=== PATIENT | female | born 1995 | race Caucasian/White ===

== ENCOUNTER 2017-07-17 05:33 | Emergency (ER) | payer BC ==
[2017-07-17 05:53] VITALS: PULSE 90; TEMP 97.9; BMI 27.9
--- NOTE | 2017-07-17 05:54 | PDOC ---
History of Present Illness - General Chief Complaint: Nausea/Vomiting Stated Complaint: ABD PAIN Time Seen by Provider: 07/17/17 05:48 History Source: Patient - History of Present Illness Initial Comments: 07/17/17 06:24 22-year-old female with no medical history presents to the emergency department complaining of lower abdominal pain 6 hours. Pain is described as 8/10 sharp nonradiating intermittent discomfort with nausea/vomiting but denies fever/ chills, neck pain, back pain, shortness of breath, chest pain, flank pains, urinary symptoms: Frequency/urgency/hesitancy, hematuria. There are no alleviating or exacerbating factors. LMP: Presently Past History - Past Medical History Allergies/Adverse Reactions: Allergies Allergy/AdvReac Type Severity Reaction Status Date / Time No Known Allergies Allergy Verified 01/10/16 08:02 GI Disorders: Yes (GB STONES) - Immunization History Immunization Up to Date: Yes - Psycho/Social/Smoking Cessation Hx Anxiety: No Suicidal Ideation: No Smoking History: Never smoked Have you smoked in the past 12 months: No Number of Cigarettes Smoked Daily: 0 Hx Alcohol Use: No Drug/Substance Use Hx: No Substance Use Type: None Hx Substance Use Treatment: No Review of Systems - Review of Systems Able to Perform ROS?: Yes Comments:: 07/17/17 06:25 CONSTITUTIONAL: Absent: fever, chills, diaphoresis, generalized weakness, malaise, loss of appetite HEENT: Absent: rhinorrhea, nasal congestion, throat pain, throat swelling, difficulty swallowing, mouth swelling, ear pain, eye pain, visual Changes CARDIOVASCULAR: Absent: chest pain, loss of consciousness, palpitations, irregular heart rate, peripheral edema RESPIRATORY: Absent: cough, shortness of breath, dyspnea with exertion, orthopnea, wheezing, stridor, hemoptysis GASTROINTESTINAL: +abd pain, N/V Absent:abdominal distension, diarrhea, constipation, melena, hematochezia GENITOURINARY: Absent: dysuria, frequency, urgency, hesitancy, hematuria, flank pain, genital pain MUSCULOSKELETAL: Absent: myalgia, arthralgia, joint swelling SKIN: Absent: rash, itching, pallor HEMATOLOGIC/IMMUNOLOGIC: Absent: easy bleeding, easy bruising, lymphadenopathy, frequent infections ENDOCRINE: Absent: unexplained weight gain, unexplained weight loss, heat intolerance, cold intolerance NEUROLOGIC: Absent: headache, focal weakness or paresthesias, dizziness, unsteady gait, seizure, mental status changes, bladder or bowel incontinence PSYCHIATRIC: Absent: anxiety, depression, suicidal or homicidal ideation, hallucinations. Is the patient limited Swedish proficient: No *Physical Exam - Vital Signs Last Vital Signs Temp Pulse Resp BP Pulse Ox 97.9 F 90 18 133/80 97 07/17/17 05:46 07/17/17 05:46 07/17/17 05:46 07/17/17 05:46 07/17/17 05:46 - Physical Exam Comments: 07/17/17 06:25 GENERAL: Well developed, well nourished. Awake and alert. No acute distress. HEENT: Normocephalic, atraumatic. PERRLA, EOMI. No conjunctival pallor. Sclera are non- icteric. Moist mucous membranes. Oropharynx is clear. NECK: Supple. Full ROM. No JVD. Carotid pulses 2+ and symmetric, without bruits. No thyromegaly. No lymphadenopathy. CARDIOVASCULAR: Regular rate and rhythm. No murmurs, rubs, or gallops. Distal pulses are 2+ and symmetric. PULMONARY: No evidence of respiratory distress. Lungs clear to auscultation bilaterally. No wheezing, rales or rhonchi. ABDOMINAL: +LLQ pain on deep palp Soft. Non-distended. No rebound or guarding. No organomegaly. Normoactive bowel sounds. MUSCULOSKELETAL Normal range of motion at all joints. No bony deformities or tenderness. No CVA tenderness. EXTREMITIES: No cyanosis. No clubbing. No edema. No calf tenderness. SKIN: Warm and dry. Normal capillary refill. No rashes. No jaundice. NEUROLOGICAL: Alert, awake, appropriate. Cranial nerves 2-12 intact. No deficits to light touch and temperature in face, upper extremities and lower extremities. No motor deficits in the in face, upper extremities and lower extremities. Normoreflexic in the upper and lower extremities. Normal speech. Toes are down- going bilaterally. Gait is normal without ataxia. PSYCHIATRIC: Cooperative. Good eye contact. Appropriate mood and affect. ED Treatment Course - LABORATORY CBC & Chemistry Diagram: 07/17/17 05:51 07/17/17 05:51 Progress Note - Progress Note Progress Note: 0701hrs: signed out to SOFI Zheng reassess/ check CT scan abd/pelvis *DC/Admit/Observation/Transfer - Discharge Dispostion Condition at time of disposition: Guarded
[2017-07-17] MEDS ORDERED: ONDANSETRON 4 MG/2 ML VIAL IVPUSH ONE ×2 (05:56→07:16)
[2017-07-17] MEDS ORDERED: SODIUM CHLORIDE 1,000 ML IV SCH (06:00)
[2017-07-17] MEDS ORDERED: ONDANSETRON 4 MG/2 ML VIAL ONE ×2 (06:05→07:20)
[2017-07-17 06:06] LABS: BASOPHIL 0.4 % (0-2.0); EOSINOPHIL 0.2 % (0-4.5); MCH 28.2 pg (25.7-33.7); MCHC 33.2 g/dl (32.0-36.0); MEAN PLT VOLUME 8.1 fl (7.5-11.1); NEUTROPHILS 83.7 % (42.8-82.8); PLATELET COUNT 268 K/MM3 (134-434); RDW 13.2 % (11.6-15.6); WHITE BLOOD COUNT 9.8 K/mm3 (4.0-10.0)
[2017-07-17] MEDS ORDERED: morphine CARPU-JECT 2 MG/1 ML DISP.SYRIN IVPUSH ONE (06:11)
[2017-07-17] MEDS ORDERED: morphine CARPU-JECT 2 MG/1 ML DISP.SYRIN ONE (06:18)
[2017-07-17 06:28] VITALS: BP 139/81
[2017-07-17 06:37] LABS: ALBUMIN 3.9 g/dl (3.4-5.0); ALK PHOS 50 U/L (45-117); ANION GAP 8 (8-16); BILIRUBIN,TOTAL 0.5 mg/dL (0.2-1.0); CALCIUM 9.1 mg/dL (8.5-10.1); CO2 24 mmol/L (21-32); CREATININE 0.7 mg/dL (0.55-1.02); GLUCOSE,RANDOM 102 mg/dL (74-106); SGOT/AST 11 U/L (15-37); SGPT/ALT 19 U/L (12-78); TOT PROT 6.7 g/dl (6.4-8.2)
[2017-07-17 06:39] LABS: URINE APPEARANCE SLCLOUDY; URINE BILIRUBIN NEGATIVE (NEGATIVE); URINE BLOOD 3+ (NEGATIVE); URINE COLOR YELLOW; URINE GLUCOSE (UA) NEGATIVE (NEGATIVE); URINE KETONE 1+ (NEGATIVE); URINE LEUK ESTERASE NEGATIVE (NEGATIVE); URINE NITRITE NEGATIVE (NEGATIVE); URINE PROTEIN NEGATIVE (NEGATIVE); URINE UROBILINOGEN NEGATIVE mg/dL (0.2-1.0)
[2017-07-17 06:47] LABS: URINE MUCUS RARE; URINE RBC 10 /hpf (0-3); URINE WBC 4 /hpf (3-5)
[2017-07-17] MEDS ORDERED: SODIUM CHLORIDE 1,000 ML IV STA (07:16)
--- NOTE | 2017-07-17 07:16 | PDOC ---
*Physical Exam - Vital Signs Last Vital Signs Temp Pulse Resp BP Pulse Ox 97.9 F 90 18 139/81 97 07/17/17 05:46 07/17/17 05:46 07/17/17 05:46 07/17/17 06:27 07/17/17 05:46 ED Treatment Course - LABORATORY CBC & Chemistry Diagram: 07/17/17 05:51 07/17/17 05:51 - ADDITIONAL ORDERS Additional order review: Laboratory Results 07/17/17 07/17/17 05:57 05:51 Sodium 141 Potassium 4.2 Chloride 109 H Carbon Dioxide 24 Anion Gap 8 BUN 19 H D Creatinine 0.7 Creat Clearance w eGFR > 60 Random Glucose 102 D Calcium 9.1 Total Bilirubin 0.5 D AST 11 L D ALT 19 D Alkaline Phosphatase 50 Total Protein 6.7 Albumin 3.9 Urine Color Yellow Urine Appearance Slcloudy Urine pH 5.0 Urine Protein Negative Urine Glucose (UA) Negative Urine Ketones 1+ H Urine Blood 3+ H Urine Nitrite Negative Urine Bilirubin Negative Urine Urobilinogen Negative Urine RBC 10 Urine WBC 4 Ur Epithelial Cells Few Urine Mucus Rare Urine HCG, Qual Negative 07/17/17 05:51 RBC 4.93 MCV 85.0 MCHC 33.2 RDW 13.2 D MPV 8.1 Neutrophils % 83.7 H D Lymphocytes % 13.3 D Monocytes % 2.4 L Eosinophils % 0.2 Basophils % 0.4 - Medications Given in the ED: ED Medications Discontinued Medications Generic Name Dose Route Start Last Admin Trade Name Tristonq PRN Reason Stop Dose Admin Morphine Sulfate 2 mg 07/17/17 06:11 07/17/17 06:28 Morphine Injection - IVPUSH 07/17/17 06:12 2 mg ONCE ONE Administration Ondansetron HCl 4 mg 07/17/17 05:56 07/17/17 06:27 Zofran Injection IVPUSH 07/17/17 05:57 4 mg ONCE ONE Administration Medical Decision Making - Medical Decision Making 07/17/17 07:06 Patient received in sign out from SOHAIL Fragoso for complaints of left lower quadrant pain . Patient awaiting CT 07/17/17 07:07 Laboratory Tests 07/17/17 07/17/17 07/17/17 05:51 05:51 05:57 WBC 9.8 Hgb 13.9 Hct 41.9 Plt Count 268 Neutrophils % 83.7 H D Carbon Dioxide 24 Anion Gap 8 Urine Ketones 1+ H Urine Urobilinogen Negative Urine RBC 10 Urine WBC 4 Urine HCG, Qual Negative 07/17/17 11:28 CT shows no evidence of acute appendicitis diverticulitis or abscess. CT does show a left ovarian cyst. will discharge home with recommendations to take Motrin apply heating pad and take Zofran as needed for nausea *DC/Admit/Observation/Transfer Diagnosis at time of Disposition: Cyst of ovary Qualifiers: Laterality: left Qualified Code(s): N83.202 - Unspecified ovarian cyst, left side - Discharge Dispostion Disposition: HOME Condition at time of disposition: Improved - Patient Instructions Printed Discharge Instructions: DI for Ovarian Cyst Additional Instructions: Please take Motrin as needed for discomfort and may take Zofran as needed for nausea. If pain continues please follow-up with [facility]. otherwise return to ED if symptoms worsen.
[2017-07-17] MEDS ORDERED: METOCLOPRAMIDE HCL INJECTION 10 MG/2 ML VIAL IVPB ONE (08:56)
[2017-07-17] MEDS ORDERED: METOCLOPRAMIDE HCL INJECTION 10 MG/2 ML VIAL ONE (09:00)
== END 2017-07-17 11:56 | disposition home or self-care (01) ==
LOC: JER 05:33
PROC: 3E033NZ Introduction of Analgesics, Hypnotics, Sedatives into Peripheral Vein, Percutaneous Approach (ICD-10-PCS; principal; 2017-07-17)
PROC: 3E033GC Introduction of Other Therapeutic Substance into Peripheral Vein, Percutaneous Approach (ICD-10-PCS; 2017-07-17)
DX: N83.202 Unspecified ovarian cyst, left side (principal)
CPT/HCPCS: 36415; 74177-TC; 80053; 81003; 81015; 83690; 84703; 85025; 99282-25

== ENCOUNTER 2017-08-16 05:14 | Day surgery (SDC) | payer BC ==
[2017-08-11 16:27] VITALS: BMI 27.9
[2017-08-16] MEDS ORDERED: PROPOFOL 20 ML ONE ×2 (07:58→08:28)
[2017-08-16] MEDS ORDERED: LIDOCAINE HCL/PF 2% SDV 5ML VIAL ONE (07:58)
[2017-08-16] MEDS ORDERED: MIDAZOLAM HCL 2 MG/2 ML SINGLE DOSE VIAL ONE (07:59)
[2017-08-16] MEDS ORDERED: SUCCINYLCHOLINE CHLORIDE 200 MG/10 ML VIAL ONE (07:59)
[2017-08-16] MEDS ORDERED: METRONIDAZOLE 500 MG PREMIXED 100 ML IVPB ONE (08:41)
[2017-08-16] MEDS ORDERED: KETOROLAC TROMETHAMINE 30 MG/1 ML VIAL ONE (08:47)
[2017-08-16] MEDS ORDERED: DEXAMETHASONE SOD PHOSPHATE 4 MG/1 ML VIAL ONE (08:47)
[2017-08-16] MEDS ORDERED: oxyCODONE HCL 5 MG TABLET PO PRN (09:15)
[2017-08-16] MEDS ORDERED: IBUPROFEN 600 MG TABLET (FP) PO PRN (09:15)
[2017-08-16] MEDS ORDERED: ONDANSETRON 4 MG/2 ML VIAL IVPB PRN (09:15)
[2017-08-16] MEDS ORDERED: IBUPROFEN 800 MG/8 ML IJ IVPB PRN (09:15)
[2017-08-16] MEDS ORDERED: ELECTROLYTE-148 SOLN 1,000 ML IV SCH (09:15)
--- NOTE | 2017-08-16 09:17 | HP ---
History & Physical Update - History History: No Change - Physical Physical: No Change - Assessment Assessment: No Change - Plan Plan: No Change (Consent signed and witnessed)
--- NOTE | 2017-08-16 09:21 | OP ---
Operative Note - Note: Operative Date: 08/16/17 Pre-Operative Diagnosis: 22 yo P0 with menometrorrhagia and IUD in citu Operation: Hysteroscopy, Polypectomy, D&C Findings: 1. Nelsy IUD in the uterus maintained in proper position 2. Polyploid, overgrown posterior uterine wall removed with Truclear device Surgeon: Terri Mendez Anesthesiologist/TECHNICAL SPECIALIST CYTOGENETICS: Carie Ivan Anesthesia: MAC Specimens Removed: Endometrial polypoid tissue and overgrown endometrium Estimated Blood Loss (mls): 0 Instrument used (Debridements only): TruClear device Drains & Tubes with Location: Fluid defficit - 270cc Drains, Volume Out (mls): 200 Fluid Volume Replaced (mls): 600 Operative Report Dictated: Yes
[2017-08-16 09:47] VITALS: TEMP 98.7
[2017-08-16] MEDS ORDERED: LACTATED RINGERS SOLUTION 1,000 ML IV SCH (10:30)
[2017-08-16 12:00] VITALS: BP 104/65; PULSE 60
--- NOTE | 2017-08-17 07:22 | OP ---
DATE OF OPERATION: 08/16/2017 PREOPERATIVE DIAGNOSIS: A 22-year-old para 0 with menometrorrhagia and intrauterine device in situ. OPERATION: Hysteroscopy, polypectomy, dilation and curettage. FINDINGS: 1. Nelsy IUD in the uterus maintained in proper position. 2. Polypoid overgrown posterior uterine wall resected with Truclear device. SURGEON: Terri Mendez MD PREPARED FOODS ASSOCIATE: Carie Ivan CRNA ANESTHESIA: MAC. SPECIMENS REMOVED: Endometrial polypoid tissue and overgrown endometrium. DESCRIPTION OF THE OPERATIVE PROCEDURE: After assuring informed consent, patient was brought to the operating room, placed in dorsal lithotomy position. Perineum was prepped and draped in sterile fashion. Straight catheter was used to empty the bladder, and instrument, 5-mm Truclear hysteroscope, was assembled and primed and wide-balanced, and subsequently the Calabrese retractors were used to visualize the cervix. A single-tooth tenaculum was placed in the inferior cervical lip, and cervix was dilated with gradually increasing dilators to accommodate 5-mm hysteroscope. Hysteroscope was introduced into the cervix without any difficulty, and all intrauterine contents were examined. Bilateral ostia were visualized. The Nelsy IUD was found to be at the uterine fundus in proper position. The posterior wall of the endometrium was found to be fully of polypoid overgrown tissue. Truclear 5-mm resectoscope was inserted through the operative port and used to resect all around the IUD until the posterior wall of the endometrium was fully denuded. Subsequently, the hysteroscope was removed from the uterus. All instruments were removed from the cervix and the vagina. Excellent hemostasis was assured with silver nitrate. Patient put out 200 mL of urine at the beginning of the procedure, so the straight catheter received 600 mL of fluid volume replacement, and fluid deficit was found to be 270 mL. Instrument and sponge count was correct x2. Patient was placed back into dorsal supine position and brought to the recovery room in stable condition. David [id number]
--- NOTE | 2017-08-17 17:30 | PATH ---
Surgical Pathology Report Patient Name: LAURO ARZATE [facility]. Rec. #: [id number] /Age/Gender: 1995 (Age: 22) / F Account: [id number] Location: [facility] SURGICAL Taken: 08/16/2017 Received: 08/16/2017 Reported: 08/17/2017 Physicians: Terri Mendez M.D. Specimen(s) Received ENDOMETRIAL CURETTINGS Clinical History Endometrial polyp Final Diagnosis ENDOMETRIUM, POLYP AND CURETTINGS, POLYPECTOMY, DILATATION AND CURETTAGE: ENDOMETRIAL POLYP, FRAGMENTS. Electronically Signed Lani Rome M.D. Gross Description Received in formalin labeled "endometrial polyp and curettings," is a 1.0 x 0.8 x 0.1 cm aggregate of berry soft tissue fragments. The formalin is filtered and the specimen is entirely submitted in one cassette. /08/16/201708/16/2017
== END 2017-08-16 12:00 | disposition home or self-care (01) ==
LOC: JASU-SURG 05:14
PROVIDERS: ATTEND Obstetrics & Gynecology
PROC: 0UB98ZX Excision of Uterus, Via Natural or Artificial Opening Endoscopic, Diagnostic (ICD-10-PCS; principal; 2017-08-16 08:00)
PROC: 0UDB8ZX Extraction of Endometrium, Via Natural or Artificial Opening Endoscopic, Diagnostic (ICD-10-PCS; 2017-08-16 08:00)
DX: N92.1 Excessive and frequent menstruation with irregular cycle (principal); N84.0 Polyp of corpus uteri; Z97.5 Presence of (intrauterine) contraceptive device
CPT/HCPCS: 84703; 88305-TC; 94760